=== PATIENT | male | born 1960 | race Caucasian/White ===

== ENCOUNTER 2025-02-25 15:45 | Emergency (ER) | payer MEDICARE, MEDICAID ==
[~2025-02-25] VITALS: Ht 170.2 cm; Wt 80.0 kg
[2025-02-25 15:49] VITALS: TEMP 36.8; O2SAT 97
[2025-02-25 16:47] VITALS: TEMP 98.2
[2025-02-25] MEDS: IBUPROFEN 400MG TABLET PO ONE (16:47)
[2025-02-25] MEDS: ACETAMINOPHEN 500MG TABLET PO ONE (16:47)
[2025-02-25] MEDS ORDERED: ACET-2708 MT (17:42)
[2025-02-25] MEDS ORDERED: IBUP-2028 MT (17:42)
[2025-02-25 18:15] VITALS: BP 151/79; PULSE 64; RESP 14; O2SAT 99
== END 2025-02-25 18:23 | disposition home or self-care (01) ==
LOC: ER 15:45
DX: S52.612A Displaced fracture of left ulna styloid process, initial encounter for closed fracture (principal); S52.592A Other fractures of lower end of left radius, initial encounter for closed fracture; I10 Essential (primary) hypertension; Z79.899 Other long term (current) drug therapy; W01.0XXA Fall on same level from slipping, tripping and stumbling without subsequent striking against object, initial encounter; Y93.01 Activity, walking, marching and hiking; Y92.89 Other specified places as the place of occurrence of the external cause; Y99.8 Other external cause status
CPT/HCPCS: 99283; 73110; 29125; A6449; A4565